=== PATIENT | female | born 1965 | race Two or more races ===

== ENCOUNTER → 2024-04-27 | Outpatient (REF) | payer OTHER, MEDICARE ==
[2024-05-01 15:17] LABS: HPV APTIMA Not Detected (Not Detected)
== END ==
LOC: M SFHCWAGY 13:07
PROVIDERS: ATTEND Nurse Practitioner Family
DX: Z12.4 Encounter for screening for malignant neoplasm of cervix (principal)

== ENCOUNTER → 2024-04-27 | Outpatient (CLI) | payer OTHER | LOC: M WHC 10:23 | PROVIDERS: ATTEND Nurse Practitioner Family | DX: Z12.31 Encounter for screening mammogram for malignant neoplasm of breast (principal); R92.333 Mammographic heterogeneous density, bilateral breasts ==

== ENCOUNTER → 2025-04-30 | Outpatient (CLI) | payer OTHER | LOC: M WHC 10:24 | PROVIDERS: ATTEND Obstetrics & Gynecology | DX: N95.1 Menopausal and female climacteric states (principal); R92.333 Mammographic heterogeneous density, bilateral breasts ==